=== PATIENT | male | born 1965 | race Caucasian/White ===

== ENCOUNTER → 2018-02-16 | Emergency (ER) | payer OTHER ==
[~2018-02-16] VITALS: Ht 175.3 cm; Wt 99.8 kg
[~2018-02-16] MED LIST: INTESTINEX680 M1 PO; PROTONIX40 MG PO
== END | disposition home or self-care (01) ==
LOC: ER 04:16
DX: K52.89 Other specified noninfective gastroenteritis and colitis (principal)